=== PATIENT | female | born 1995 | race Caucasian/White ===

== ENCOUNTER 2025-03-16 09:36 | Outpatient (AMB) | payer BC, SELFPAY ==
--- NOTE | 2025-03-16 09:49 | A.OFFVIS_ITS ---
Intake Visit Reasons: migraines Allergies No Known Allergies Allergy (Verified 03/11/25 15:08) Medication List - Last Reconciled 03/16/25 by Estefania Gillespie MD cetirizine (Zyrtec) 10 mg PO DAILY PRN levonorgestrel (Mirena) intrauterine ondansetron 4 mg PO Q8H propranolol 80 mg PO DAILY sumatriptan succinate take 1 tab at onset of headache; if no relief may repeat 1 tab after at least 2 hrs; max = 4 tabs/24 hr PO valacyclovir 500 mg PO DAILY HPI Comments Details: This is a 29-year-old right-handed woman with a history of migraines since her teenage years. Currently, she has migraines occurring about once a month without any relationship to her menstrual cycles. Sometimes, they may be triggered by dehydration or stress. There is no aura associated with a migraine. When the migraine gets really bad, she gets nausea but no vomiting. She has photophobia, sonophobia, difficulty concentrating and has to go to bed in a quiet dark room. Any activity increases her headache. The headache is generalized, but mostly in the front part of the head and temples and behind the eye with both throbbing, pressure and stabbing sensations which can vary from mild to severe. It usually lasts about 24 hours. On 1 occasion, she tried 50 mg of sumatriptan but took it late and did not feel that it helped much. She was in the emergency room 2 months ago and needed IV medications to control her migraine. She has no history of head trauma. She has a family history of migraines in her mother and sister who is a patient in the office here. Her sleep hours are somewhat irregular going to bed around 10 to midnight but usually gets about 7 hours of sleep. She does not snore or stop breathing. She drinks 1 or 2 cups of coffee a day, no alcohol or smoking. She has not had a lumbar puncture. She has never had any imaging study. She has been on propr anolol 80 mg a day since December 2024 and notes that it has reduced the migraine severity and it does not get that bad anymore. The frequency is still about 1 a month. 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 Urge to move legs??denies.??Teeth grinding??denies.??Shouting or Kicking during sleep??denies.??Abnormal behavior during sleep??denies.??Excessive sleep??denies.??Snoring??denies.??Daytime sleepiness??denies.? General/Constitutional Change in appetite??denies.??Chills??denies.??Fatigue??denies.??Fever??denies.?? Weight gain??denies.??Weight loss??denies.? Ophthalmologic Blurred vision??denies.??Diminished visual acuity??denies.? ENT Stuffiness??denies.??Decreased hearing??denies.??Dry mouth??denies.??Ear pain??denies.??Nosebleed??denies.??Ringing in the ears??denies.??Sinus pain ??denies.??Sore throat??denies.??Swollen glands??denies.? Endocrine Cold intolerance??denies.??Excessive thirst??denies.??Frequent urination ??denies.??Heat intolerance??denies.? Respiratory Shortness of breath??denies.??Chest pain??denies.??Cough??denies.? Breast Breast lump??denies.??Nipple discharge??denies.? Cardiovascular Chest pain at rest??denies.??Chest pain with exertion??denies.??Claudication ??denies.??Fluid accumulation in the legs??denies.??Irregular heartbeat ??denies.??Palpitations??denies.? Gastrointestinal Abdominal pain??denies.??Constipation??denies.??Diarrhea??denies.??Heartburn ??denies.??Nausea??denies.??Rectal bleeding??denies.? Hematology Easy bruising??denies.??Prolonged bleeding??denies.? Genitourinary Frequent urination??denies.??Urgency??denies.??Incontinence??denies.??Erectile Dysfunction??denies.? Musculoskeletal Neck pain??denies.??Back pain??denies.??Muscle aches??denies.??Painful joints??denies.? Neurologic Difficulty swallowing??denies.??Balance difficulty??denies.??Coordination ??normal.??Difficulty speaking??denies.??Dizziness??denies.??Fainting ??denies.??Gait abnormality??denies.??Headache??Yes.??Loss of strength ??denies.??Loss of use of extremity??denies.??Memory loss??denies.??Seizures ??denies.??Tics??denies.??Tingling/Numbness??denies.??Transient loss of vision ??denies.??Tremor??denies.? Psychiatric Anxiety??denies.??Auditory/visual hallucinations??denies.??Delusions ??denies.??Depressed mood??denies.??Stressors??denies.??Substance abuse ??denies.??Suicidal thoughts??denies.? Reports headache(s) ENT Reports headache(s) Neuro Reports headache(s) Physical Exam Neuro Other: ?Mini Mental Status Exam Level of Consciousness:?Alert.? Orientation:?Knows correct year, month, date, day and season.?Knows correct city, county and state. Knows correct location and floor.? Registration:?Able to register 3 objects.? Attention:?Serial 7's performed accurately.? Recall:?Able to recall 3 out of 3 objects.? Language:?Normal spontaneous speech, fluency, repetition, naming, comprehension, reading, and writing.? Total Score:?30/30.? Neurological Abnormal neurological findings:??none.? Mental Status:?Alert and oriented X 3.?Normal attention, orientation, memory, and affect.? Cranial Nerves:?Pupils are equal, round and reactive to light. Fundoscopy shows normal disc bilaterally. External occular muscles are intact. Visual otero are full, no ptosis. Face is symmetrical, no facial weakness or droop. Facial sensations are normal. Tongue protrudes in midline. Palate elevates symmetrically. Shoulder shrugging is normal.? Motor Examination:?Normal muscle tone, bulk and strength.?No atrophy or fasciculations.?No drift of the extended upper extremities.?Deep tendon reflexes are 2+.?Plantars are flexor.? Motor Strength:? Proximal Muscles (out of 5):?5 Distal Muscles (out of 5):?5 Neck Flexors (out of 5):?5 Neck Extensors (out of 5):?5 Deltoid (out of 5):?5 Biceps (out of 5):?5 Triceps (out of 5):?5 Serratus Anterior (out of 5):?5 Wrist Extensors (out of 5):?5 APB (out of 5):?5 Finger Spread (out of 5):?5 Ileopsoas (out of 5):?5 Quadriceps (out of 5):?5 Hamstrings (out of 5):?5 Tibialis Anterior (out of 5):?5 Peronei (out of 5):?5 EDB (out of 5):?5 Gastrocnemius (out of 5):?5 Straight Leg Raising:?90 degrees.? Sensory Exam:?Normal light touch, temperature, pinprick, vibration and joint-position sensations.?Rhomberg sign is absent.? Coordination:?No ataxia,?no titubation,?yjzyjf-dm-jcms, eviq-dnrr-pzsg test, and rapid alternating movements were normal.? Gait Exam:?Within normal limits.? Cerebellar Signs:?Bsfmyn-ep-krku and evkz-mk-veff is normal.?No dysdiadochokinesia.? Extrapyramidal System:?No tremor or?rigidity, normal facial expressions.?No bradykinesia. No bradyphrenia. Normal arm swing and posture. No propulsion or retropulsion.? Speech:?Normal,?no dysphasia or dysarthria.? General Examination GENERAL APPEARANCE:??normal,?in no acute distress?,?normal,?in no acute distress.? HEAD:??normocephalic,?atraumatic.? EYES:??sclera non-icteric,?conjunctiva clear.? EARS:??auditory canal clear,?tympanic membrane intact, clear.? NOSE:??no lesions.? ORAL CAVITY:??gums normal,?mucosa moist,?no lesions.? THROAT:??clear.? NECK/THYROID:??no cervical lymphadenopathy,?thyroid normal,?neck supple, full range of motion,?no carotid bruit.? SKIN:??no rashes,?no significant birthmarks.? HEART:??S1, S2 normal,?no murmurs?,?S1, S2 normal,?no murmurs.? LUNGS:??clear anteriorly and posteriorly?,?clear anteriorly and posteriorly.? CHEST:??no gross rib deformity,?clear to auscultation.? BACK:??normal exam of spine.? MUSCULOSKELETAL:??normal.? EXTREMITIES:??no edema?,?no edema.? PERIPHERAL PULSES:??normal.? PSYCH:??alert, oriented,?cognitive function intact,?cooperative with exam?,?alert, oriented,?cognitive function intact,?cooperative with exam.? Assessment & Plan Assessment & Plan (1) Migraine without aura: Code(s): G43.009 - Migraine without aura, not intractable, without status migrainosus Category: Medical Plan For now she will continue taking propranolol 80 mg a day. She will keep a migraine log. If the headache intensity and frequency is unacceptable, she will be switched to long-acting propranolol 120 mg a day. For abortive therapy of her migraines, she will start with 50 mg sumatriptan at the onset of the migraine and repeat in 1 hour if it is not going away. She may use ondansetron p.r.n. for nausea. Coding Level of Care Code New Pt Level 5 (65704) Diagnoses Migraine without aura G43.009
--- OUTSIDE RECORDS SUMMARY | 2025-03-16 11:27 | XMS_ITS ---
Author Name [facility] Organization Unknown History of Medication Use Medication Directions Dispensed Refills Start Date End Date Stat us No medication inform ation recorded active Problems Problem Status Onset Date Problem Type Date of Resoluti on Source Diarrhea, unspecified active 2023-12-11 ProblemAct [facility] Care Team Organization Name Specialty Phone Email Start Date End Da te [facility] NO PROVIDER Primary Care 06/08/2023 [facility] 023 [facility]
--- OUTSIDE RECORDS SUMMARY | 2025-03-16 11:27 | XMS_ITS | Clinical Summary ---
Author Organization [facility] Address [address] [place] [address] Phone Care Team Providers Care Contract Negotiation Manager Name Role Phone Anita King MD Primary Care Provider Immunizations Immunization Administration Dates Next Due DTP 10/20/1995, 5,1994, 995 DTaP 5 06/19/1999 HPV, Quadrivalent 02/23/2010,10/18/2009,08/24/19 09 Hep B, ped/adol 02/06/1995,1994 Hib (PRP-T) 07/21/1995, 5,1994, 995 IPV 06/19/1999 Influenza, injectable, trivalent 04/14/2002 MMR 04/25/1998,07/21/1995 Meningococcal Conj (Menactra) MCV4P 01/13/2007 OPV 10/20/1995,1994,1994 Tdap 01/13/2007 Varicella 08/23/2008,10/20/1995 Family History Relation Name Status Comments Father Father: allergi es/acid reflux Maternal Grandfather Materna l grandfather: Coronary artery disease Maternal Grandmother Materna l grandmother: cancer Mother Alive Mother: Alive a nd well Other No family histo ry of CVA (Stroke), No family history of Sudden /NH under age 55, No family history of Dental caries, No family history of Thrombophilia Social History Tobacco Use Types Packs/Day Years Used Date Smoking Tobacco: Never Comments:Never smoker Comments Unknown Sex and Gender Information Value Date Recorded Sex Assigned at Not on file Legal Sex Female 5:00 PM EDT Gender Identity Not on file Sexual Orientation Not on file Last Filed Vital Signs Vital Sign Reading Time Taken Comments Blood Pressure 108/72 04/09/2016 12:00 AM EST Pulse 75 04/09/2016 12:00 AM EST Temperature 37 C (98.6 F) 04/09/2016 12:00 AM EST Respiratory Rate - - Oxygen Saturation - - Inhaled Oxygen Concentration - - Weight 107 kg (236 lb) 04/09/2016 12:00 AM EST Height 162.6 cm (5' 4 ) 04/09/2016 12:00 AM EST Body Mass Index 40.51 04/09/2016 12:00 AM EST Plan of Treatment Health Maintenance Due Date Last Done Comments Hepatitis B Vaccines (3 of 3 - 3-dose series) 04/03/1995 02/06/1995, 1994 DTaP,Tdap,and Td Vaccines (7 - Td or Tdap) 01/13/2017 01/13/2007, 06/19/1999, 10/20/1995, Additional history exists Influenza Vaccines (#1) 2024 04/14/2002 COVID-19 Vaccine ( season) 2025 HIB Vaccines Completed 07/21/1995, 09/1994, 1994, Additional history exists MMR Vaccines Completed 04/25/1998, 07/21/1995 IPV Vaccines Completed 06/19/1999, 07/1995, 1994, Additional history exists Meningococcal Vaccine Aged Out 01/13/2007 No skyla louie eligible based on patient's age to complete this topic Varicella Vaccines Completed 08/23/2008, 10/20/1995 HPV Vaccines Completed 02/23/2010, 06/2009, 08/23/2008 Hepatitis A Vaccines Aged Out No long er eligible based on patient's age to complete this topic Men B Vaccine Aged Out No longer elig ible based on patient's age to complete this topic Pneumococcal Vaccine Aged Out No long er eligible based on patient's age to complete this topic Care Teams Contract Negotiation Manager Relationship Specialty Start Date End Date Anita King MD [address] [place] [address] [place] Torrez [id number] PCP - General 12/27/16
--- OUTSIDE RECORDS SUMMARY | 2025-03-16 11:27 | XMS_ITS | Encounter Summary ---
Author Organization [facility] Address [address] [place] [address] Phone Care Team Providers Care Office Services Specialist Name Role Phone Anita King MD Primary Care Provider [phone] Encounter Details Date Type Department Care Team (Late st Contact Info) Description 12/31/2013 Documentation [facility] [place] Family Medicine [address] [place] [address] Family Medicine, Physician [address] [place], [place] [address] Social History Tobacco Use Types Packs/Day Years Used Date Smoking Tobacco: Never Assessed Comments Unknown Sex and Gender Information Value Date Recorded Sex Assigned at Not on file Legal Sex Female 5:00 PM EDT Gender Identity Not on file Sexual Orientation Not on file documented as of this encounter Plan of Treatment Not on file documented as of this encounter Visit Diagnoses Not on filedocumented in this encounter Care Teams Office Services Specialist Relationship Specialty Start Date End Date Anita King MD [address] [place], [place] [address]GR[place] [id number] PCP - General 12/27/16 documented as of this encounter
--- OUTSIDE RECORDS SUMMARY | 2025-03-16 11:27 | XMS_ITS | Encounter Summary ---
Author Organization [facility] Address [address] [place] [address] Phone Care Team Providers Care Top Printing Press Operator Name Role Phone Anita King MD Primary Care Provider [phone] Encounter Details Date Type Department Care Team (Late st Contact Info) Description 10/06/2009 Documentation [facility] [place] [address] [place] [address] Family Medicine, Physician [address] [place], [place] [id number] Social History Tobacco Use Types Packs/Day Years [...] on filedocumented in this encounter Care Teams Top Printing Press Operator Relationship Specialty Start Date End Date Anita King MD [address] [place], [place] [address]GR[place] [id number] PCP - General 12/27/16 documented as of this encounter
--- OUTSIDE RECORDS SUMMARY | 2025-03-16 11:27 | XMS_ITS | Encounter Summary ---
Author Organization [facility] Address [address] [place] [address] Phone Care Team Providers Care Piler Name Role Phone Anita King MD Primary Care Provider [phone] Encounter Details Date Type Department Care Team (Late st Contact Info) Description 01/02/2017 Conversion Encounter [facility] [place] [address] [place] [address] Social History Tobacco Use Types Packs/Day Years [...] on filedocumented in this encounter Care Teams Piler Relationship Specialty Start Date End Date Anita King MD [address] [place] [address] PCP - General 12/27/16 documented as of this encounter
== END 2025-03-16 10:11 | disposition home or self-care (01) ==
PROVIDERS: Visit Provider Psychiatry & Neurology Neurology
DX: G43.009 Migraine without aura, not intractable, without status migrainosus (principal)
CPT/HCPCS: 99204